=== PATIENT | female | born 2005 | race Two or more races ===

== ENCOUNTER 2024-12-02 10:34 | Emergency (ER) | payer MEDICAID, SELFPAY ==
[2024-12-02 10:36] VITALS: BMI 21.4
[2024-12-02 10:49] VITALS: BP 110/71; PULSE 80; RESP 19; TEMP 36.8; O2SAT 99
--- NOTE | 2024-12-02 10:50 | XR_ITS ---
Examination: CT maxillofacial, without intravenous contrast. 2-D sagittal reconstructions. 3-D reconstructions. Date and time of exam: December 02, 2024, 1120 hours INDICATIONS: Patient fell 1 day ago with injury to the face, facial pain CTDI: vol (mGy): 13.2 DLP: (mGycm): 235 Technique: Multiple axial images of maxillofacial region, 3.0 mm slice thickness. 2-D sagittal and coronal reconstructions. 3-D reconstructions. Low dose protocols were performed. One or more of the following dose reduction techniques were used; automated exposure control, adjustment of the mA and/or KV according to patient size, use of iterative reconstruction technique. Findings: Frontal bones frontal sinuses intact No nasal bone fracture No depression zygomatic arches Orbital rims intact Maxilla and mandible intact IMPRESSION: No acute facial fracture.
--- NOTE | 2024-12-02 10:50 | XR_ITS ---
Examination: CT brain head without contrast. 2-D sagittal coronal reconstructions Date and time of exam: December 02, 2024, 1120 hours INDICATIONS: Patient fell yesterday with injury to the head, head pain CTDI: vol (mGy): 46.3 DLP: (mGycm): 861 Technique: Multiple CT axial sections of the brain have been obtained, 5 mm slice thickness. Contrast has not been administered. 2-D sagittal, coronal reconstructions have been obtained Low dose protocols were performed. One or more of the following dose reduction techniques were used; automated exposure control, adjustment of the mA and/or KV according to patient size, use of iterative reconstruction technique. Findings: No significant ventricular enlargement. Intra-axial or extra-axial hemorrhage density is not seen. No mass effect or midline shift Basal cisterns are not remarkable. Fourth ventricle is midline. Cranial vault intact. Impression: Negative for acute hemorrhage, mass effect or midline shift
--- NOTE | 2024-12-02 12:10 | EDNOTE_ITS ---
ED Head Injury RME/HPI General Chief complaint: Head Injury Stated complaint: HEAD PAIN S/P TRIP AND FALL Time Seen by Provider: 12/02/24 10:41 Arrival date/time: 12/02/24 10:34 19-year-old female presents to the emergency room today for complaints of head and facial injury after trip and fall patient reports swelling to left side of her face as well as headache patient reports no nausea or vomiting no dizziness or weakness patient reports no chance of Limitations: no limitations Related Data Previous Rx's ?Medication ?Instructions ?Recorded ibuprofen 400 mg tablet 400 mg PO Q8H PRN pain #30 t abs 12/02/24 Allergies Allergy/AdvReac Type Severity Reaction Status Date / Time No Known Allergies AdvReac Unknown Uncoded 12/02/24 10:38 Review of Systems Review of Systems Systems Reviewed: All systems reviewed, normal except as documented Constitutional Constitutional: Reports system reviewed and no additional complaints, except as documented, Denies fever(s) and Reports headache(s) Eyes Eyes: Reports system reviewed and no additional complaints, except as documented and Denies blurry vision ENT Ears, Nose, Mouth, and Throat: Reports system reviewed and no additional complaints, except as documented, Reports facial pain, Reports headache(s), Denies nasal congestion and Denies nasal discharge Cardiovascular Cardiovascular: Reports system reviewed and no additional complaints, except as documented, Denies chest pain and Denies dyspnea Respiratory Respiratory: Reports system reviewed and no additional complaints, except as documented, Denies chest congestion, Denies cough and Denies dyspnea Gastrointestinal Gastrointestinal: Reports system reviewed and no additional complaints, except as documented and Denies abdominal pain Integumentary/Breasts Skin/Breast: Reports system reviewed and no additional complaints, except as documented and Denies rash Neurologic Neurologic: Reports system reviewed and no additional complaints, except as documented, Reports as per HPI and Reports headache(s) Past Medical History Past Medical History CARDIAC: Negative Congestive Heart Failure RESPIRATORY: Negative Chronic Obstructive Pulmonary Disease (COPD) GENITOURINARY: Negative Renal Disease ENDOCRINE: Negative Diabetes Mellitus Type 1 or Diabetes Mellitus Type 2 Social History SMOKING STATUS: Never smoker ED Exam General Limitations: Present no limitations General appearance: Present alert and in no apparent distress Expanded Head Exam Head exam physical: Absent hematoma, raccoon eyes or Parker's sign Head image: 2 1. Facial swelling Eye Eye exam: Present normal appearance, PERRL and EOMI ENT ENT exam: Present normal exam, normal oropharynx and mucous membranes moist Neck Neck exam: Present normal inspection, full ROM and trachea midline Chest Chest inspection: Present normal inspection and symmetric chest wall rise Respiratory Respiratory exam: Present normal lung sounds bilaterally Cardiovascular Cardiovascular exam: Present regular rate, normal rhythm and normal heart sounds Abdominal Exam Abdominal exam: Present soft and normal bowel sounds Extremities Exam Extremities exam: Present normal inspection and full ROM Back Exam Back exam: Present normal inspection and full ROM Neurological Exam Neurological exam: Present alert, oriented X3 and CN II-XII intact Psychiatric Psychiatric exam: Present normal affect and normal mood Skin Skin exam: Present warm, dry, intact and normal color Course Quality Measures none Orders Category Date Time Status CT facial bones wo con Stat Exams 12/02/24 10:[address] head/brain wo con Stat Exams 12/02/24 10:50 Completed Vital Signs Vital signs: Vital Signs Temperature 98.3 F 12/02/24 10:49 Pulse Rate 80 12/02/24 10:49 Respiratory Rate 19 12/02/24 10:49 Blood Pressure 110/71 12/02/24 10:49 Pulse Oximetry (%) 99 12/02/24 10:49 Oxygen Delivery Method Room Air 12/02/24 10:49 O2 saturation 99% room air within normal limits Head Injury MDM Narrative MDM Narrative:: 19-year-old female presents to the emergency room today for complaints of head and facial injury after trip and fall patient reports swelling to left side of her face as well as headache patient reports no nausea or vomiting no dizziness or weakness patient reports no chance of On exam patient well-appearing patient does not appear look toxic acute distress Imaging obtained no acute emergent findings noted Patient has no abnormal neurological findings Patient discharged home in no distress to follow-up with primary care doctor in the next 24 to 48 hours and for any worsening symptoms to return to the ER immediately Patient data External records reviewed:: [facility] previous records Clinical information provided by:: patient Social determinants that could affect healthcare access:: none Patient has the following chronic illnesses:: None How is presenting disease/condition affected by chronic disease/condition?: no chronic disease Evaluation data The following diagnostics were reviewed and interpreted by me:: radiology exam(s) Lab and/or radiology exams considered but not ordered:: Radiology obtain Interpretation Summary: Reviewed by me Medications / Prescriptions Medications or Prescriptions considered but not ordered:: Rx given Medication administrations:: Rx given Consultations Consultation(s) initiated? (list below): No Diagnosis Differential diagnosis head injury: concussion without loss of consciousness, subdural hematoma and concussion with loss of consciousness Most likely diagnosis given after review of the tests above:: Close head injury Admission Indicated Admission indicated?: not indicated Admission Request Was there a request for admission?: No Disposition Plan Disposition Plan: Discharge Discharge Attestation Discharge Attestation: The patient and all family members were given an opportunity to ask questions and understood the discharge instructions. Discharge instructions specifically effects, indications for sooner follow up or return to the emergency department, and the expected course of current diagnosis. Patient condition: Stable Discharge Plan Plan Patient Disposition: HOME (Self Care) Discharge Disposition comment: Stable Prescriptions/Referrals Prescriptions/Med Rec: New ibuprofen 400 mg tablet 400 mg PO Q8H PRN (Reason: pain) Qty: 30 0RF Referrals: Ja Morley MD [Primary Care Provider, [facility]] - 12/03/24 Problem List Clinical Impression: Closed head injury Patient/Caregiver Discharge Instructions Education Materials: ED Head Injury (Adult) Additional Instructions: Please follow up with your primary care doctor in the next 24-48hrs for any worsening symptoms return here immediately Print Language: Fijian Stand Alone Forms: Vickie Award Info., Work/School Release, Patient Portal Info Letter MARIANNA/CHUY Supervising Physician EWELINA Supervising Physician: dr richards
== END 2024-12-02 14:22 | disposition home or self-care (01) ==
PROVIDERS: Emergency Provider Nurse Practitioner Primary Care; PCP Family Medicine
DX: S09.90XA Unspecified injury of head, initial encounter (principal); S09.93XA Unspecified injury of face, initial encounter; W01.0XXA Fall on same level from slipping, tripping and stumbling without subsequent striking against object, initial encounter
CPT/HCPCS: 70450; 70486; 99284